=== PATIENT | male | born 1980 | race Hispanic/Latino ===

== ENCOUNTER 2016-10-19 07:15 | Outpatient (CLI) | payer BC ==
[2016-10-19 07:49] LABS: Alanine Aminotransferase 20 units/L (7-56); Albumin/Globulin Ratio 1.7 %; Alkaline Phosphatase 58 units/L (35-129); Anion Gap 17 mmol/L; Blood Urea Nitrogen 18 mg/dL (9-20); Calcium 8.9 mg/dL (8.4-10.2); Carbon Dioxide 27 mmol/L (22-30); Chloride 102.5 mmol/L (98-107); Cholesterol 144 mg/dL (50-199); Glucose 87 mg/dL (75-100); HDL Cholesterol 31 mg/dL (40-59); LDL Cholesterol,Direct 91 mg/dL (50-130); Sodium 142 mmol/L (137-145); Total Protein 6.4 g/dL (6.3-8.2); Triglycerides 111 mg/dL (2-149)
== END 2016-10-19 07:16 | disposition home or self-care (01) ==
LOC: LAB 07:15
PROVIDERS: ATTEND Family Medicine
DX: Z00.00 Encounter for general adult medical examination without abnormal findings (principal)
CPT/HCPCS: 36415; 80053; 80061